=== PATIENT | female | born 1980 | race Caucasian/White ===

== ENCOUNTER 2021-10-24 10:43 | Emergency (ER) | payer OTHER ==
[2021-10-24 11:05] VITALS: BP 103/63; PULSE 66; TEMP 98.4; BMI 23.1
[2021-10-24] MEDS ORDERED: ACETAMINOPHEN 1000 MG/100 ML BAG IVPB ONE (11:37)
[2021-10-24] MEDS ORDERED: SODIUM CHLORIDE 1,000 ML IV STA (11:37)
[2021-10-24] MEDS ORDERED: ACETAMINOPHEN INJECTION 100 ML IVPB ONE (11:38)
[2021-10-24 13:02] LABS: BASO % 0.7 % (0-2.0); EOS % 0.6 % (0-4.5); HEMATOCRIT 43.4 % (32.4-45.2); HEMOGLOBIN 15.1 GM/dL (10.7-15.3); MCH 30.9 pg (25.7-33.7); MCHC 34.8 g/dl (32.0-36.0); MEAN CELL VOLUME 88.7 fl (80-96); MEAN PLT VOLUME 8.5 fl (7.5-11.1); MONO % 5.5 % (3.8-10.2); NEUT % 64.2 % (42.8-82.8); PLATELET COUNT 298 10^3/uL (134-434); RBC 4.89 M/mm3 (3.60-5.2); RDW 12.6 % (11.6-15.6); WHITE BLOOD COUNT 5.9 K/mm3 (4.0-10.0)
[2021-10-24 13:17] LABS: CALCIUM 8.9 mg/dL (8.5-10.1)
[2021-10-24 13:18] LABS: ALBUMIN 3.9 g/dl (3.4-5.0); BLOOD UREA NITROGEN 12.6 mg/dL (7-18)
[2021-10-24 13:21] LABS: CREATININE 0.6 mg/dL (0.55-1.3)
[2021-10-24 13:22] LABS: TOT PROT 8.4 g/dl (6.4-8.2)
[2021-10-24 13:23] LABS: BILIRUBIN,TOTAL 0.7 mg/dL (0.2-1)
== END 2021-10-24 13:46 | disposition home or self-care (01) ==
LOC: JER 10:43 → JERFT 10:43
PROC: 3E033GC Introduction of Other Therapeutic Substance into Peripheral Vein, Percutaneous Approach (ICD-10-PCS; principal; 2021-10-24)
DX: J02.0 Streptococcal pharyngitis (principal); R51.9 Headache, unspecified
CPT/HCPCS: 36415; 80053; 85025; 99284-25